=== PATIENT | female | born 1980 | race Caucasian/White ===

== ENCOUNTER 2021-06-25 08:53 | Outpatient (CLI) | payer OTHER, MEDICAID, SELFPAY ==
[2021-06-25 09:01] VITALS: BP 124/77; PULSE 90; RESP 18; TEMP 36.8; O2SAT 99; BMI 37.5
[2021-06-25 09:25] VITALS: BP 99/70; PULSE 80; RESP 18; TEMP 36.9; O2SAT 97
[2021-06-25 10:48] VITALS: BP 105/72; PULSE 79; RESP 17; TEMP 36.7; O2SAT 97
== END 2021-06-25 08:54 | disposition home or self-care (01) ==
LOC: OPS 09:06
PROVIDERS: PCP Electrodiagnostic Medicine; Visit Provider Electrodiagnostic Medicine
DX: U07.1 COVID-19 (principal)
CPT/HCPCS: 96365

== ENCOUNTER 2021-10-16 18:39 | Emergency (ER) | payer MEDICAID, SELFPAY ==
[2021-10-16] VITALS (9 sets, daily range): BP systolic 114–130; BP diastolic 70–89; PULSE 61–82; RESP 16–20; TEMP 36.4; O2SAT 97–100; BMI 36.9
--- NOTE | 2021-10-16 19:16 | USR_ITS ---
PROCEDURE INFORMATION: Exam: US Abdomen, Limited; Right Upper Quadrant Exam date and time: 10/16/2021 9:18 PM Age: 41 years old Clinical indication: Abdominal pain; Localized; Right upper quadrant (ruq); Additional info: Ruq pain TECHNIQUE: Imaging protocol: US abdomen. Real time ultrasound with image documentation. Limited exam focused on the right upper quadrant. COMPARISON: No relevant prior studies available. FINDINGS: Liver: The liver is unremarkable. Gallbladder: The gallbladder is unremarkable. No gallstones or intraluminal sludge. No gallbladder wall thickening. No pericholecystic fluid. Sonographic Woodall's sign is negative per report from the cytology technologist. Biliary ducts: Normal. No stones. No dilation. Pancreas: The visualized pancreas is unremarkable. No pancreatic ductal dilatation. Right kidney: The right kidney is unremarkable. Aorta: Visualized aorta is unremarkable. Inferior vena cava: Visualized IVC is unremarkable. Portal venous: Hepatopetal flow in the portal vein. Intraperitoneal space: No ascites. US/US gall bladder [id number] IMPRESSION: Unremarkable right upper quadrant ultrasound.
--- NOTE | 2021-10-16 19:18 | W.ED.ABDPA2 ---
HPI - Abdominal Pain General: Chief Complaint: Abdominal Pain Stated Complaint: abd pains Time Seen by Provider: 10/16/21 19:09 Source: patient Mode of arrival: ambulatory Limitations: no limitations History of Present Illness: 41-year-old female who states she been having some epigastric and right upper abdominal pain over the last 7 hours. States that sharp to touch improved some rest. Had some nausea no vomiting she has had an appendectomy in the past. She does have a history of reflux states that this does not feel similar it seems worse. Associated Symptoms: Reports nausea; Denies chills, dysuria and fever(s) Related Data: Date of Last Menstrual Period: 10/06/21 Review of Systems Const: Denies: fever(s), chills, body aches or change in appetite Eyes: Denies: blurry vision or eye discomfort ENMT: Denies: throat pain or dental pain Card: Denies: chest pain Resp: Denies: dyspnea GI: Reports: abdominal pain and nausea : Denies: dysuria Musc: Denies: neck pain or back pain Skin/Breast: Denies: rash Neuro: Denies: headache(s) Psych: Denies: depression Garrett/Lymph: Denies: easy bruising All/Imm: Denies: urticaria PFSH ED PFSH: Surgical History History of appendectomy Social History (Updated 10/16/21 @ 19:20 by Jairon Perez MD) Substance/Drug Use: never Female Reproductive History: Date of last menstrual period: 10/06/21 Physical Exam Const: COMMON NORMALS: no acute distress, patient oriented x3 and healthy appearing HENMT: COMMON NORMALS: normocephalic and atraumatic HEAD & SCALP: normocephalic and atraumatic Eye: COMMON NORMALS: Equal, round and reactive pupils present and EOMs intact bilaterally PUPIL: Yes Equal, round and reactive pupils present Neck/C-Spine: COMMON NORMALS: full ROM and supple Chest: COMMONS NORMALS: normal inspection of the chest and normal palpation of entire chest wall Resp: COMMON NORMALS: normal respiratory effort, No retractions, No use of accessory muscles and clear to auscultation bilaterally AUSCULTATION: clear to auscultation bilaterally Cardio: COMMON NORMALS: regular rate, regular rhythm and No murmurs present (Cardio) RATE: regular rate RHYTHM: regular rhythm GI: COMMON NORMALS: Normal to inspection, nondistended, normoactive bowel sounds present, Soft to palpation and no masses PALPATION: Yes Soft to palpation and Yes Tenderness to palpation present (GI) Details: RUQ Extremity: COMMON NORMALS: normal to inspection and full ROM Neuro: COMMON NORMALS: patient oriented x3, moves all extremities and no focal motor deficits Psych: COMMON NORMALS: mental status grossly normal, Normal thought process present and cooperative THOUGHT PROCESS: Normal thought process present Skin: COMMON NORMALS: no rashes or lesions noted and no wounds GENERAL SKIN EXAM: no rashes or lesions noted Course Vital Signs: Vital signs: Vital Signs Temperature 97.6 F 10/16/21 18:53 Pulse Rate 76 10/16/21 21:58 Respiratory Rate 16 10/16/21 21:58 Blood Pressure 121/84 10/16/21 21:58 Pulse Oximetry 99 10/16/21 21:58 MDM - Abdominal Pain Medical Decision Making Patient presents here with abdominal pain she is also found to be anemic rectal exam here showed no blood in her stool and her pain is much improved exam at discharge is benign ultrasound showed no acute findings we will place her on Protonix along with pain meds get her follow-up with surgery along with her PCP she is return if worsening. Lab Data : 10/16/21 19:30 10/16/21 19:30 Labs/Radiology: Laboratory Results WBC 8.7 10^3/uL (4.0-10.0) 10/16/21 19:30 RBC 4.01 10^6/uL (4.1-5.3) L 10/16/21 19:30 Hgb 7.4 g/dL (11.5-15.3) L 10/16/21 19:30 Hct 27.5 % (37.0-47.0) L 10/16/21 19:30 MCV 68.6 fl (81-99) L 10/16/21 19:30 MCH 18.5 pg (28.0-34.0) L 10/16/21 19:30 MCHC 26.9 g/dL (30.0-36.0) L 10/16/21 19:30 RDW 21.0 % (12.1-15.1) H 10/16/21 19:30 Plt Count 222 10^3/cmm (130-400) 10/16/21 19:30 MPV 10.5 fL (7.4-10.4) H 10/16/21 19:30 Neut % (Auto) 72.7 % 10/16/21 19:30 Lymph % (Auto) 22.1 % 10/16/21 19:30 [place] % (Auto) 3.9 % 10/16/21 19:30 Eos % (Auto) 0.8 % 10/16/21 19:30 Baso % (Auto) 0.3 % 10/16/21:30 Neut # (Auto) 6.33 10^3/uL (1.8-7.7) 10/16/21: Lymph # (Auto) 1.9 10^3/uL (0.8-4.8) 10/16/21:30 [place] # (Auto) 0.3 10^3/uL (0.2-0.9) 10/16/21: Eos # (Auto) 0.1 10^3/uL (0.0-0.8) 10/16/21: Baso # (Auto) 0.0 10^3/uL (0.0-0.1) 10/16/21: Nucleated RBC % (auto) 0 % 10/16/21 19: Nucleated RBCs # 0.0 /100WBC 10/16/21 19:30 Sodium 134 mmol/L (136-145) L 10/16/21: Potassium 4.4 mmol/L (3.5-5.1) 10/16/21 19: Chloride 100 mmol/L (98-107) 10/16/21 19: Carbon Dioxide 20 mmol/L (22-29) L 10/16/21 19:30 Anion Gap 18.4 (5-19) 10/16/21 19:30 BUN 9 mg/dL (6-20) 10/16/21 19:30 Creatinine 0.8 mg/dL (0.5-0.9) 10/16/21 19:30 GFR Calculation 79.0 mL/min (90-130) L 10/16/21 19:30 Glucose 103 mg/dL (65-115) 10/16/21 19:30 Calculated Osmolality 277 mOsm/kg (285-295) L 10/16/21 19: Calcium 8.8 mg/dL (8.5-10.5) 10/16/21 19: Total Bilirubin 0.2 mg/dL (0.15-1.2) 10/16/21 19:30 AST 16 U/L (0-32) 10/16/21 19: ALT 10 U/L (0-33) 10/16/21 19: Alkaline Phosphatase 115 IU/L (35-105) H 10/16/21 19:30 Total Protein 8.1 g/dL (6.6-8.7) 10/16/21: Albumin 4.1 g/dL (3.5-5.2) 10/16/21: Globulin 4.0 g/dL (1.3-4.6) 10/16/21: Lipase 34 U/L (13-60) 10/16/21 19: HCG, Qual Negative (Negative) 10/16/21 19:30 Urine Color Yellow (Yellow) 10/16/21 19:05 Urine Appearance Clear (CLEAR) 10/16/21 19:05 Urine pH 5 (5-7) 10/16/21 19:05 Ur Specific [place] 1.025 (1.005-1.030) 10/16/21 19:05 Urine Protein Neg (Negative) 10/16/21 19:05 Urine Glucose (UA) Norm (Normal) 10/16/21 19:05 Urine Ketones Negative (Negative) 10/16/21 19:05 Urine Blood Neg (Negative) 10/16/21 19:05 Urine Nitrate Negative (Negative) 10/16/21 19:05 Urine Bilirubin Neg (Negative) 10/16/21 19:05 Urine Urobilinogen 4 mg/dL (Negative) H 10/16/21 19:05 Ur Leukocyte Esterase Negative (Negative) 10/16/21 19:05 Discharge Plan Discharge Patient Disposition: Home Clinical Impression: Abdominal pain, Anemia Condition: Stable Prescriptions: New hydrocodone-acetaminophen 5-325 mg tablet 1 tab PO Q6H PRN (Reason: pain) Qty: 14 0RF Protonix 40 mg tablet,delayed release (DR/EC) 40 mg PO DAILY Qty: 60 0RF ondansetron 4 mg tablet,disintegrating 4 mg PO Q6H PRN (Reason: nausea and vomiting) Qty: 14 0RF No Action Zoloft 100 mg Tablet 100 mg PO DAILY 0RF omeprazole 10 mg Capsule,Delayed Release(Dr/Ec) 10 mg PO DAILY 0RF Flonase 50 mcg/actuation [place],Suspension 1 spray INTRANASAL BID 0RF Discharge Orders: Discharge ED (Routine); Ordered 10/16/21 Ordered By: Jairon Perez Referrals: Romulo Miles MD [Physician] - 1-3 days Stiven Garcia DO [Primary Care Provider] - 1-3 days Discharge Diet: Advance as tolerated Discharge Activity: Resume usual activity Patient Instructions: Abdominal Pain (ED), Anemia (ED) Coding Level of Care Code ED Technical Instructor Course Developer for Chg Fwd Exam Comprehensive
[2021-10-16] MEDS: morphine 4 mg/mL SDV 1 mL IVP (19:35)
[2021-10-16] MEDS: ondansetron 2 mg/ML SDV 2 mL 4 MG IVP (19:35)
[2021-10-16] MEDS: sodium chloride 0.9% 1,000 ML 999 ML IV (19:40)
[2021-10-16 20:08] LABS: HCG, Serum Qual Negative (Negative)
[2021-10-16 20:09] LABS: Alanine Aminotransferase 10 U/L (0-33); Albumin Level 4.1 g/dL (3.5-5.2); Alkaline Phosphatase 115 IU/L (35-105); Aspartate Amino Transferase 16 U/L (0-32); Blood Urea Nitrogen 9 mg/dL (6-20); Calcium 8.8 mg/dL (8.5-10.5); Carbon Dioxide 20 mmol/L (22-29); Chloride 100 mmol/L (98-107); Glucose 103 mg/dL (65-115); Lipase 34 U/L (13-60); Osmolality Calculated 277 mOsm/kg (285-295); Sodium 134 mmol/L (136-145); Total Bilirubin 0.2 mg/dL (0.15-1.2); Total Protein 8.1 g/dL (6.6-8.7)
[2021-10-16 20:14] LABS: Anion Gap 18.4 (5-19); Potassium 4.4 mmol/L (3.5-5.1)
[2021-10-16 20:18] LABS: Add Urine Microscopic? NO; Charge for UA Resulting for Rev
[2021-10-16 20:40] LABS: Nucleated Red Blood Cells % 0 %
[2021-10-16 20:41] LABS: Hematocrit 27.5 % (37.0-47.0); Hemoglobin 7.4 g/dL (11.5-15.3); Mean Corpuscular HGB Conc 26.9 g/dL (30.0-36.0); Mean Corpuscular Hemoglobin 18.5 pg (28.0-34.0); Mean Corpuscular Volume 68.6 fl (81-99); Mean Platelet Volume 10.5 fL (7.4-10.4); Platelet Count 222 10^3/cmm (130-400); Red Blood Count 4.01 10^6/uL (4.1-5.3); White Blood Count 8.7 10^3/uL (4.0-10.0)
[2021-10-16 20:42] LABS: Basophils % 0.3 %; Eosinophils % 0.8 %; Lymphocytes % 22.1 %; Monocytes % 3.9 %; Neutrophils % 72.7 %
[2021-10-16] MEDS: HYDROmorphone 1 mg/mL INJ 1 mL IVP (20:42)
[2021-10-16 20:43] LABS: Eosinophils # 0.1 10^3/uL (0.0-0.8); Lymphocytes # 1.9 10^3/uL (0.8-4.8); Monocytes # 0.3 10^3/uL (0.2-0.9); Neutrophils # 6.33 10^3/uL (1.8-7.7)
[2021-10-16 20:44] LABS: Slide Review Slide Review Perform
[2021-10-16 20:48] LABS: Bilirubin Urine Neg (Negative); Blood Urine Neg (Negative); Glucose Urine UA Norm (Normal); Ketones Urine Negative (Negative); Leukocyte Esterase Urine Negative (Negative); Nitrate Urine Negative (Negative); Protein Urine Neg (Negative); Specific Gravity, Urine 1.025 (1.005-1.030); Urine Appearance Clear (CLEAR); Urine Color Yellow (Yellow); Urobilinogen Urine 4 mg/dL (Negative); pH Urine 5 (5-7)
--- NOTE | 2021-10-20 10:25 | DCPLANNER ---
Addendum entered by Patria Melgoza 10/22/21 21:47: Patient had a follow up appointment scheduled for 10.20.21 with general surgery - patient did attend appointment. Original Note: continuum of care manager had message to schedule a follow up appointment for patient with general surgery. continuum of care manager sent patients information to the front office staff at general surgery. Patients information will be printed and reviewed. Clinic will call patient with appointment information.
== END 2021-10-16 20:09 | disposition home or self-care (01) ==
PROVIDERS: Emergency Provider Emergency Medicine; PCP Electrodiagnostic Medicine
DX: R10.13 Epigastric pain (principal); R10.11 Right upper quadrant pain; D64.9 Anemia, unspecified; R11.0 Nausea
CPT/HCPCS: 76705; 80053; 81003; 83690; 84703; 85025; 96361; 96374; 96375; 99284; J1170; J2270; J2405; J7030

== ENCOUNTER → 2021-10-20 11:05 | Outpatient (BNVA) | payer MEDICAID, SELFPAY | PROVIDERS: PCP Electrodiagnostic Medicine; Visit Provider Surgery | DX: R10.9 Unspecified abdominal pain (principal) | CPT/HCPCS: 99203 ==

== ENCOUNTER 2021-10-23 08:54 | Day surgery (SDC) | payer MEDICAID, SELFPAY ==
[2021-10-20 12:49] VITALS: BMI 36.5
[2021-10-23] MEDS: sodium chloride 0.9% 1,000 ML 30 ML IV (09:36)
[2021-10-23 09:38] VITALS: BP 119/71; PULSE 87; RESP 18; TEMP 36.2; O2SAT 97
--- NOTE | 2021-10-23 09:50 | W.PM.OPSUD ---
Surgery/Procedure H&P Update DATE OF PROCEDURE: October 23, 2021 DATE H&P PERFORMED: 10/20/21 H&P UPDATE INFORMATION: I have reviewed H&P completed within last 30 days, I have examined patient prior to procedure and No changes to prior documentation PREOP DIAGNOSIS: Epigastric pain PRIMARY INDICATION FOR PROCEDURE: The same PLANNED PROCEDURE: Operation Date: 10/23/21 10:30 Proposed Procedures p EGD 68654/R10.9(Not Applicable) - Romulo Miles MD
--- NOTE | 2021-10-23 09:56 | ANES.PREANE2 ---
Pre-Anesthetic Assessment Height/Weight: Height 1.7 m Weight 105.687 kg Temp Pulse Resp BP Pulse Ox 97.1 F L 87 18 119/71 97 10/23/21 09:38 10/23/21 09:38 10/23/21 09:38 10/23/21 09:38 10/23/21 09:38 Preop Diagnosis: Epigastric pain Operation Date: 10/23/21 10:30 Proposed Procedures p EGD 71125/R10.9(Not Applicable) - Romulo Miles MD Familial anesthetic complications: None Was Beta Fortino taken within 24 hours: N/A Was Clonidine taken within 24 hours: N/A Last intake: Intake Last Liquid Date 10/22/21 Last Liquid Time 23:30 Last Solid Date 10/22/21 Last Solid Time 19:00 Social Tobacco Exam alert, oriented x 3, clear to auscultation bilaterally and regular rate & rhythm Airway Submandibular: within normal limits Cervical ROM: within normal limits Mallampati: Class III Dentition: false History/ROS No significant complaints Pulmonary None reported CV/HEM None reported None reported Hepatic None reported GI Gastroesophageal Reflux Disease (Poorly controlled, symptomatic on empty stomach) Metabolic None reported Musc/skel None reported Neuropsych None reported Anesthetic Plan ASA status: 3 (41 year old female daily smoker with GERD and abdominal pain ) Anesthesia: Anesthesia Evaluation, General and MAC Other: I discussed with the patient risks, goals, and benefits of MAC and general anesthesia. We discussed spectrum of MAC anesthesia including conversion to general as well as possibility of recall of intraoperative stimuli including discomfort/pain. Patient agrees to proceed with MAC. Risk of > 500 ml blood loss (7ml/kg in children): No Medications/Allergies Home Medications Medication Instructions Recorded Confirmed Last Taken Type fluticasone propionate 50 1 spray INTRANASAL BID 06/25/21 10/22/21 10/22/21 History mcg/actuation nasal spray,suspension sertraline 100 mg tablet (Zoloft) 100 mg PO DAILY 06/25/21 10/22/21 10/22/21 History hydrocodone 5 mg-acetaminophen 325 1 tab PO Q6H PRN #14 tab 10/16/21 10/22/21 10/22/21 Rx mg tablet ondansetron 4 mg disintegrating 4 mg PO Q6H PRN #14 tab 10/16/21 10/22/21 10/22/21 Rx tablet pantoprazole 40 mg tablet,delayed 40 mg PO DAILY #60 tab 10/16/21 10/22/21 10/22/21 Rx release (Protonix) loratadine 10 mg tablet 10 mg PO DAILY 10/20/21 10/22/21 10/22/21 History Allergies Allergy/AdvReac Type Severity Reaction Status Date / Time No Known Allergies Allergy Verified 10/22/21 16:37 Current Medications Generic Name Dose Route Start Last Admin Trade Name Freq PRN Reason Stop Dose Admin Sodium Chloride 1,000 mls @ 30 mls/hr 10/23/21 09:00 10/23/21 09:36 Sodium Chloride 0.9% IV 10/24/21 08:59 30 mls/hr .Q24H GIAN Administration PFSH Anesthesia Surgical History History of appendectomy Female Reproductive History Date of last menstrual period: 09/29/21 Data Anesthesia Cardiac Studies: No Data to Display
[2021-10-23 10:06] LABS: OR HCG Qualitative Urine Negative (Negative)
[2021-10-23 10:41] VITALS: BP 121/77; PULSE 84; RESP 16; TEMP 36.4; O2SAT 98
--- NOTE | 2021-10-23 10:42 | ANE.PACU2 ---
Documented by User: Ayana Irizarry CRNA 10/23/21 10:43 Inpatient post-anesthesia follow up: Airway intact: Yes Vital signs: Temperature 97.6 F Pulse Rate 84 Respiratory Rate 16 Blood Pressure 121/77 Pulse Oximetry 98 Oxygen Delivery Me thod Room Air Oxygen Flow Rate Fraction of Inspir ed Oxygen Hydration adequate: Yes Nausea and vomiting: No Pain level: 1 Mental status: Baseline
[2021-10-23 10:51] VITALS: BP 113/68; PULSE 80; RESP 16; O2SAT 99
== END 2021-10-23 11:13 | disposition home or self-care (01) ==
PROVIDERS: Anesthesiology; PCP Electrodiagnostic Medicine; Visit Provider Surgery
PROC: 0DJ08ZZ Inspection of Upper Intestinal Tract, Via Natural or Artificial Opening Endoscopic (ICD-10-PCS; CPT 43235; principal; 2021-10-23 10:30)
DX: R10.13 Epigastric pain (principal); K21.00 Gastro-esophageal reflux disease with esophagitis, without bleeding; K29.70 Gastritis, unspecified, without bleeding; F17.210 Nicotine dependence, cigarettes, uncomplicated
CPT/HCPCS: 43235; 81025; 84703; J2704; J7030

== ENCOUNTER 2022-02-17 07:28 | Outpatient (CLI) | payer MEDICAID, SELFPAY ==
--- NOTE | 2022-02-17 08:00 | NM_ITS ---
WS: [id number] NUCLEAR MEDICINE HIDA SCAN CLINICAL INFORMATION: abd pain TECHNIQUE: Following intravenous administration of 7.4 mCi of technetium 99m mebrofenin, images of th e abdomen were obtained over the course of 60 minutes. Next, gallbladder ejection fraction was determ ined by obtaining preprandial and one-hour postprandial images of the gallbladder following oral linn stion of Ensure. COMPARISON: Ultrasound October 16, 2021 FINDINGS: Normal hepatic uptake at 5 minutes. Normal hepatic excretion. Gallbladder is visualized by 10 minutes . No evidence of acute cholecystitis. Normal common bile duct and small bowel activity. Gallbladder ejection fraction 53% within normal manzanares its. No evidence of chronic cholecystitis. NM/NM hepatobiliary w phar* [id number] IMPRESSION: 1. No evidence of acute or chronic cholecystitis. 2. Gallbladder ejection fraction 53% within normal limits.
== END 2022-02-17 07:29 | disposition home or self-care (01) ==
LOC: RAD 07:30
PROVIDERS: PCP Electrodiagnostic Medicine; Visit Provider Surgery
DX: R10.9 Unspecified abdominal pain (principal)
CPT/HCPCS: 78227; A9537

== ENCOUNTER 2025-01-05 08:46 | Outpatient (CLI) | payer MEDICAID, SELFPAY ==
--- NOTE | 2025-01-05 | MM_ITS ---
WS: [id number] BILATERAL SCREENING DIGITAL TOMOSYNTHESIS MAMMOGRAM WITH CAD HISTORY: ANNUAL SCREENING COMPARISON: None available. Bilateral CC and MLO views with tomosynthesis and synthetic mammography submitted. Computer aided detection analyzed. Breast composition: The breasts are almost entirely fatty. No suspicious masses, microcalcifications or architectural distortion. MM/MM scr BI tomosynthesis [id number] IMPRESSION: BI-RADS: 1 - Negative. FOLLOW UP: 1 Year Follow-up
== END 2025-01-05 08:47 | disposition home or self-care (01) ==
LOC: RAD 08:49
PROVIDERS: PCP Electrodiagnostic Medicine; Visit Provider Electrodiagnostic Medicine
DX: Z12.31 Encounter for screening mammogram for malignant neoplasm of breast (principal); R92.313 Mammographic fatty tissue density, bilateral breasts
CPT/HCPCS: 77063; 77067